=== PATIENT | male | born 1940 | race Caucasian/White ===

== ENCOUNTER 2024-06-26 09:22 | Inpatient (IN) | payer OTHER, MEDICARE ==
[2024-06-26] VITALS (20 sets, daily range): BP systolic 104–168; BP diastolic 50–85; PULSE 55–95; RESP 14–26; O2SAT 92–100
[~2024-06-26] VITALS: Ht 172.7 cm; Wt 113.0 kg
[~2024-06-26 09:22] MED LIST: APIX5TAB3 PO; CHOL100046 PO; CLOP75TA34 PO; FLO0.4C PO; FURO-150 PO; MULT-785 PO; POTA10CA95 PO; TRAZ-251 PO; sodium chloride 0.9% 10ml vial - diluent IJ ONE
[2024-06-26 09:43] LABS: BASOPHILS % (AUTO) 0.4 % (0-1); EOSINOPHILS % (AUTO) 1.3 % (0-6); HEMATOCRIT 34.5 % (42.0-52.0); HEMOGLOBIN 11.4 g/dl (14.0-17.9); LYMPHOCYTES # (AUTO) 1.1 X10'3 (1.1-4.8); MEAN CORPUSCULAR HGB CONC 33.1 g/dL (33.0-36.5); MEAN CORPUSCULAR VOLUME 96.8 FL (78-98); MEAN PLATELET VOLUME 7.6 FL (7.4-10.4); MONOCYTES # (AUTO) 0.4 X10'3 (0-0.9); NEUTROPHILS # (AUTO) 2.2 X10'3 (1.8-7.7); NEUTROPHILS % (AUTO) 58.3 % (42-75); PLATELET COUNT 149 X10'3 (140-440); RED BLOOD COUNT 3.57 X10'6 (4.70-6.10); RED CELL DISTRIBUTION WIDTH 14.1 % (11.5-14.5); WHITE BLOOD COUNT 3.7 X10'3 (4.5-11.0)
[2024-06-26 09:56] LABS: ALANINE AMINOTRANSFERASE 28 U/L (12-78); ALBUMIN 3.2 G/DL (3.4-5.0); ALBUMIN/GLOBULIN RATIO 0.9 (1.1-1.5); ALKALINE PHOSPHATASE 75 IU/L (46-116); ANION GAP 8 (8-16); ASPARTATE AMINO TRANSFERASE 23 U/L (10-37); BILIRUBIN,TOTAL 0.6 MG/DL (0.1-1.0); BLOOD UREA NITROGEN 25 MG/DL (7-18); BUN/CREATININE RATIO 25.8 (10.0-20.0); CALCIUM 8.5 MG/DL (8.5-10.1); CHLORIDE 100 MMOL/L (99-107); CREATININE 0.97 MG/DL (0.60-1.10); GLUCOSE 115 MG/DL (70-104); POTASSIUM 3.8 MMOL/L (3.5-5.1); SODIUM 136 MMOL/L (135-145); TOTAL CARBON DIOXIDE 28.3 MMOL/L (24-32); TOTAL PROTEIN 6.7 G/DL (6.4-8.2); eCRCL 55 ML/MIN; eGFR 74 ML/MIN
[2024-06-26] MEDS: nitroGLYCERIN 0.4mg/hour patch TD ONE (09:59)
[2024-06-26] MEDS: ondansetron/PF 4mg/2ml inj IV ONE (10:00)
[2024-06-26] MEDS: furosemide 10 MG/1 ML 10ml inj IV ONE (10:00)
[2024-06-26] MEDS: morphine 4 MG/ML inj SYRINge IV ONE (10:01)
[2024-06-26 10:04] LABS: PRO BRAIN NATRIURETIC PEPTIDE 400 PG/ML (0-450)
[2024-06-26] MEDS ORDERED: verapamil 2.5 mg/ml inj IV ONE (10:06)
[2024-06-26] MEDS ORDERED: heparin 1,000unit/ml 10ml vial 10 ML ONE ×2 (10:07→11:30)
[2024-06-26] MEDS ORDERED: iohexol 350MG/ML 100ml bottle IV ONE ×3 (10:07→11:14)
[2024-06-26] MEDS ORDERED: fentaNYL/PF 50MCG/1 ML 2ML syringe ONE (10:07)
[2024-06-26] MEDS ORDERED: iohexol 350 MG/ML 50ML vial IV ONE (10:07)
[2024-06-26] MEDS ORDERED: LIDOcaine 1% 30ml preserv. free vial ONE (10:07)
[2024-06-26] MEDS ORDERED: midazolam 1 mg/ML 2ml injection ONE ×2 (10:07→12:03)
[2024-06-26] MEDS ORDERED: nitroGLYCERIN 500mcg/5mL D5W 5 ML IV ONE (10:08)
[2024-06-26] MEDS: propofol 1000mg/100ml bottle 100 ML IV ONE (10:14)
[2024-06-26] MEDS ORDERED: propofol 1000mg/100ml bottle 100 ML IV PRN (10:15)
[2024-06-26 10:17] LABS: APTT 29 SECONDS (22-32); PROTHROMBIN TIME 10.7 SECONDS (9.0-12.0)
[2024-06-26] MEDS: propofol 1000mg/100ml bottle 100 ML IV SCH ×2 (10:18→12:40)
[2024-06-26] MEDS ORDERED: ticagrelor 90mg tablet ONE (11:25)
[2024-06-26] MEDS ORDERED: aspirin 81mg tab.chew ONE (11:41)
[2024-06-26] MEDS: FENTANYL-0.9 % NACL/PF 100 ML IV SCH (12:25)
[2024-06-26] MEDS ORDERED: magnesium hydroxide 30ml (MOM) UD suspension PO PRN (12:45)
[2024-06-26] MEDS ORDERED: acetaminophen 325mg tablet PO PRN ×2 (12:45)
[2024-06-26 15:14] LABS: ABG BASE EXCESS 3.7 mmol/L (-2.0-3.0); ABG HCO3 25.2 mmol/L (21.0-28.0); ABG OXYGEN SATURATION 99.1 % (94.0-98.0); ABG PCO2 (T) 28.6 mmHg (35.0-48.0); ABG PH (T) 7.562 (7.350-7.450); ABG PO2 (T) 194.1 mmHg (83.0-108.0); ALLEN'S TEST POSITIVE; FCOHb 0.3 % (0.5-1.5); FHHb 0.9 % (0.0-5.0); FMetHb 0.1 % (0.0-1.5); FO2Hb 98.7 % (94.0-98.0); MODE VENT - AC; PATIENT TEMPERATURE 36.7; PEEP 5 cm H2O; RESPIRATORY RATE 16 b/min; TIDAL VOLUME 550 mL; TOTAL HEMOGLOBIN 12.7 G/dl (13.5-17.5)
[2024-06-26] MEDS ORDERED: AMLO2.5T2 PO (17:16)
[2024-06-26] MEDS ORDERED: DONE10TA19 PO (17:16)
[2024-06-26] MEDS ORDERED: GABA300C PO (17:17)
[2024-06-26] MEDS ORDERED: HYDR25TA90 PO (17:18)
[2024-06-26] MEDS ORDERED: ROSU40TA71 PO (17:20)
[2024-06-26] MEDS ORDERED: LOSA-415 PO (17:22)
[2024-06-26] MEDS ORDERED: HYDR-3973 PO (17:22)
[2024-06-26] MEDS ORDERED: METO-467 PO ×2 (17:26)
[2024-06-26] MEDS: pantoprazole 40MG/NS 100ML BAG 100 ML IV SCH (17:46)
[2024-06-26 18:13] LABS: CHOL/HDL RATIO 1.7 (0.00-4.99); CHOLESTEROL 151 MG/DL (0-200); HDL CHOLESTEROL 88 MG/DL (35-60); LDL CHOLESTEROL 50 MG/DL (50-100); TRIGLYCERIDES 127 MG/DL (20-135)
[2024-06-26] MEDS: docusate sod 100mg capsule PO SCH (20:00)
[2024-06-27] VITALS (32 sets, daily range): BP systolic 89–156; BP diastolic 40–66; PULSE 55–98; RESP 14–28; TEMP 97.5; O2SAT 91–98
[2024-06-27 03:09] LABS: ABG BASE EXCESS 8.5 mmol/L (-2.0-3.0); ABG HCO3 32.7 mmol/L (21.0-28.0); ABG OXYGEN SATURATION 93.3 % (94.0-98.0); ABG PCO2 (T) 44.5 mmHg (35.0-48.0); ABG PH (T) 7.486 (7.350-7.450); ALLEN'S TEST POSITIVE; FCOHb 0.3 % (0.5-1.5); FHHb 6.7 % (0.0-5.0); FMetHb 0.3 % (0.0-1.5); FO2Hb 92.7 % (94.0-98.0); MODE CMV PRVC IT 0.9; PATIENT TEMPERATURE 37.4; PEEP 5 cm H2O; RESPIRATORY RATE 14 b/min; TIDAL VOLUME 450 mL; TOTAL HEMOGLOBIN 12.1 G/dl (13.5-17.5)
[2024-06-27 04:23] LABS: BASOPHILS % (AUTO) 0.3 % (0-1); EOSINOPHILS # (AUTO) 0.1 X10'3 (0-0.9); LYMPHOCYTES % (AUTO) 17.9 % (21-51); MEAN CORPUSCULAR HEMOGLOBIN 32.1 PG (27.0-31.0); MEAN CORPUSCULAR HGB CONC 33.2 g/dL (33.0-36.5); MEAN CORPUSCULAR VOLUME 96.5 FL (78-98); MEAN PLATELET VOLUME 7.7 FL (7.4-10.4); MONOCYTES # (AUTO) 0.7 X10'3 (0-0.9); MONOCYTES % (AUTO) 11.2 % (2-12); NEUTROPHILS % (AUTO) 69.6 % (42-75); PLATELET COUNT 155 X10'3 (140-440); RED BLOOD COUNT 3.42 X10'6 (4.70-6.10); RED CELL DISTRIBUTION WIDTH 14.1 % (11.5-14.5); WHITE BLOOD COUNT 5.8 X10'3 (4.5-11.0)
[2024-06-27 04:30] LABS: ALANINE AMINOTRANSFERASE 22 U/L (12-78); ALBUMIN 2.8 G/DL (3.4-5.0); ALBUMIN/GLOBULIN RATIO 0.9 (1.1-1.5); ALKALINE PHOSPHATASE 63 IU/L (46-116); ANION GAP 3 (8-16); ASPARTATE AMINO TRANSFERASE 19 U/L (10-37); BILIRUBIN,TOTAL 0.6 MG/DL (0.1-1.0); BLOOD UREA NITROGEN 18 MG/DL (7-18); BUN/CREATININE RATIO 18.6 (10.0-20.0); CALCIUM 8.4 MG/DL (8.5-10.1); CHLORIDE 101 MMOL/L (99-107); CHOL/HDL RATIO 1.9 (0.00-4.99); CHOLESTEROL 132 MG/DL (0-200); CREATININE 0.97 MG/DL (0.60-1.10); GLUCOSE 97 MG/DL (70-104); HDL CHOLESTEROL 70 MG/DL (35-60); LDL CHOLESTEROL 43 MG/DL (50-100); MAGNESIUM 1.8 MG/DL (1.5-2.4); PHOSPHORUS 4.5 MG/DL (2.3-4.5); POTASSIUM 3.4 MMOL/L (3.5-5.1); SODIUM 139 MMOL/L (135-145); TOTAL CARBON DIOXIDE 35.1 MMOL/L (24-32); TRIGLYCERIDES 132 MG/DL (20-135); eCRCL 55 ML/MIN; eGFR 74 ML/MIN
[2024-06-27] MEDS: aspirin 81mg, enteric-coated 1 TAB TABLET.DR PO SCH (08:19)
[2024-06-27] MEDS: ticagrelor 90mg tablet PO SCH (08:19)
[2024-06-27] MEDS ORDERED: magnesium sulf-water 4G/100mL 100 ML IV PRN ×2 (12:05→13:30)
[2024-06-27] MEDS ORDERED: magnesium sulf-water 2g/50mL 50 ML IV PRN (12:05)
[2024-06-27] MEDS ORDERED: potassium Cl 40MEQ/1/2NS 520ml 520 ML IV PRN ×2 (12:05→13:30)
[2024-06-27] MEDS ORDERED: potassium Cl 20 mEq SR tablet PO PRN ×3 (12:05→13:30)
[2024-06-27] MEDS: HYDROcodone/acetaminophen 10/325mg tab PO PRN (12:22)
[2024-06-27] MEDS ORDERED: magnesium Cl slow-release 64mg tablet PO PRN (13:30)
[2024-06-27] MEDS: LIDOcaine 5% patch TP ONE (16:50)
[2024-06-27] MEDS: gabapentin 300mg capsule PO SCH (20:34)
[2024-06-27] MEDS: hydrALAZINE 25 MG tablet PO SCH (20:36)
[2024-06-27] MEDS: potassium Cl 20 mEq SR tablet PO PRN (20:37)
[2024-06-27] MEDS: tamsulosin 0.4mg capsule PO SCH (20:37)
[2024-06-27] MEDS: traZODone 50mg tablet PO SCH (20:39)
[2024-06-27] MEDS: donepezil 5mg tablet PO SCH (20:39)
[2024-06-27] MEDS: metoprolol tartrate 25mg tablet PO SCH (20:40)
[2024-06-27] MEDS: K and/or MAG REPLACEMENT MC SCH (20:44)
[2024-06-28] VITALS (10 sets, daily range): BP systolic 115–154; BP diastolic 46–70; PULSE 74–82; RESP 18–23; TEMP 98.2–98.9; O2SAT 88–96
[2024-06-28 07:18] LABS: BASOPHILS % (AUTO) 0.2 % (0-1); EOSINOPHILS % (AUTO) 0.1 % (0-6); HEMATOCRIT 34.6 % (42.0-52.0); HEMOGLOBIN 11.5 g/dl (14.0-17.9); LYMPHOCYTES # (AUTO) 0.8 X10'3 (1.1-4.8); LYMPHOCYTES % (AUTO) 11.1 % (21-51); MEAN CORPUSCULAR HEMOGLOBIN 32.3 PG (27.0-31.0); MEAN CORPUSCULAR HGB CONC 33.2 g/dL (33.0-36.5); MEAN CORPUSCULAR VOLUME 97.2 FL (78-98); MONOCYTES # (AUTO) 0.9 X10'3 (0-0.9); MONOCYTES % (AUTO) 12.4 % (2-12); NEUTROPHILS # (AUTO) 5.7 X10'3 (1.8-7.7); NEUTROPHILS % (AUTO) 76.2 % (42-75); PLATELET COUNT 156 X10'3 (140-440); RED BLOOD COUNT 3.56 X10'6 (4.70-6.10); RED CELL DISTRIBUTION WIDTH 13.7 % (11.5-14.5); WHITE BLOOD COUNT 7.5 X10'3 (4.5-11.0)
[2024-06-28] MEDS: metoprolol tartrate 50mg tablet PO SCH (07:36)
[2024-06-28] MEDS: losartan 50mg tablet PO SCH (07:37)
[2024-06-28] MEDS: amLODIPine 5mg tablet PO SCH (07:38)
[2024-06-28] MEDS: furosemide 20MG tablet PO SCH (07:39)
[2024-06-28] MEDS: ROSUVASTATIN CALCIUM 5 MG TABLET PO SCH (07:40)
[2024-06-28 07:59] LABS: ALANINE AMINOTRANSFERASE 18 U/L (12-78); ALBUMIN 2.7 G/DL (3.4-5.0); ALBUMIN/GLOBULIN RATIO 0.7 (1.1-1.5); ALKALINE PHOSPHATASE 65 IU/L (46-116); ANION GAP 4 (8-16); ASPARTATE AMINO TRANSFERASE 18 U/L (10-37); BILIRUBIN,TOTAL 1.1 MG/DL (0.1-1.0); BLOOD UREA NITROGEN 12 MG/DL (7-18); BUN/CREATININE RATIO 12.9 (10.0-20.0); CALCIUM 8.5 MG/DL (8.5-10.1); CHLORIDE 100 MMOL/L (99-107); CHOL/HDL RATIO 1.7 (0.00-4.99); CHOLESTEROL 138 MG/DL (0-200); CREATININE 0.93 MG/DL (0.60-1.10); GLUCOSE 99 MG/DL (70-104); HDL CHOLESTEROL 81 MG/DL (35-60); LDL CHOLESTEROL 39 MG/DL (50-100); POTASSIUM 3.8 MMOL/L (3.5-5.1); SODIUM 136 MMOL/L (135-145); TOTAL CARBON DIOXIDE 31.7 MMOL/L (24-32); TOTAL PROTEIN 6.6 G/DL (6.4-8.2); TRIGLYCERIDES 97 MG/DL (20-135); eCRCL 57 ML/MIN; eGFR 77 ML/MIN
[2024-06-28] MEDS: magnesium Cl slow-release 64mg tablet PO PRN (09:13)
[2024-06-28 15:44] LABS: PRO BRAIN NATRIURETIC PEPTIDE 1000 PG/ML (0-450)
[2024-06-28] MEDS ORDERED: HYDROcodone/acetaminophen 10/325mg tab PO PRN (16:50)
[2024-06-28] MEDS: furosemide 40mg/4ml inj IV ONE (17:16)
[2024-06-28] MEDS: apixaban 5mg tablet PO SCH (21:02)
[2024-06-29] VITALS (16 sets, daily range): BP systolic 105–138; BP diastolic 36–73; PULSE 64–78; RESP 14–22; TEMP 98–99; O2SAT 92–97
[2024-06-29 06:39] LABS: BASOPHILS % (AUTO) 0.3 % (0-1); EOSINOPHILS # (AUTO) 0.1 X10'3 (0-0.9); EOSINOPHILS % (AUTO) 0.8 % (0-6); HEMATOCRIT 33.5 % (42.0-52.0); LYMPHOCYTES % (AUTO) 13.6 % (21-51); MEAN CORPUSCULAR HEMOGLOBIN 32.2 PG (27.0-31.0); MEAN CORPUSCULAR VOLUME 97.7 FL (78-98); MEAN PLATELET VOLUME 7.8 FL (7.4-10.4); MONOCYTES # (AUTO) 0.9 X10'3 (0-0.9); MONOCYTES % (AUTO) 12.1 % (2-12); NEUTROPHILS # (AUTO) 5.2 X10'3 (1.8-7.7); NEUTROPHILS % (AUTO) 73.2 % (42-75); PLATELET COUNT 141 X10'3 (140-440); RED BLOOD COUNT 3.42 X10'6 (4.70-6.10); WHITE BLOOD COUNT 7.2 X10'3 (4.5-11.0)
[2024-06-29 06:54] LABS: ALANINE AMINOTRANSFERASE 20 U/L (12-78); ALBUMIN 2.5 G/DL (3.4-5.0); ALBUMIN/GLOBULIN RATIO 0.6 (1.1-1.5); ALKALINE PHOSPHATASE 59 IU/L (46-116); ANION GAP 3 (8-16); ASPARTATE AMINO TRANSFERASE 16 U/L (10-37); BILIRUBIN,TOTAL 0.8 MG/DL (0.1-1.0); BLOOD UREA NITROGEN 32 MG/DL (7-18); BUN/CREATININE RATIO 18.4 (10.0-20.0); CALCIUM 8.6 MG/DL (8.5-10.1); CHLORIDE 98 MMOL/L (99-107); CREATININE 1.74 MG/DL (0.60-1.10); GLUCOSE 99 MG/DL (70-104); PHOSPHORUS 4.6 MG/DL (2.3-4.5); POTASSIUM 4.9 MMOL/L (3.5-5.1); SODIUM 135 MMOL/L (135-145); TOTAL CARBON DIOXIDE 34.1 MMOL/L (24-32); TOTAL PROTEIN 6.6 G/DL (6.4-8.2); eCRCL 31 ML/MIN; eGFR 38 ML/MIN
[2024-06-29] MEDS: furosemide 20 MG/2 ML vial IV SCH (08:29)
[2024-06-29] MEDS: pantoprazole 40 MG vial IV SCH (08:29)
[2024-06-29] MEDS: normal saline 1000ml 1,000 ML IV SCH (09:26)
[2024-06-29] MEDS: ipratropium/albuterol 3ml nebule NEB SCH (10:20)
[2024-06-29] MEDS: methylPREDNISolone sod succ 125mg/2ml vial IV ONE (19:32)
[2024-06-29] MEDS: guaiFENesin ER 600mg tablet PO SCH (19:35)
[2024-06-29] MEDS: LIDOcaine 5% patch TP ONE (22:38)
[2024-06-29] MEDS: nystatin 15 GM powder TP SCH (22:39)
[2024-06-29] MEDS: morphine 2 MG/ML inj. syringe IV PRN (22:40)
[2024-06-30] VITALS (15 sets, daily range): BP systolic 124–169; BP diastolic 47–61; PULSE 65–84; RESP 10–22; TEMP 97.3–98.8; O2SAT 90–96
[2024-06-30 06:05] LABS: BASOPHILS % (AUTO) 0 % (0-1); EOSINOPHILS % (AUTO) 0 % (0-6); HEMATOCRIT 31.7 % (42.0-52.0); HEMOGLOBIN 10.6 g/dl (14.0-17.9); LYMPHOCYTES # (AUTO) 0.1 X10'3 (1.1-4.8); LYMPHOCYTES % (AUTO) 2.5 % (21-51); MEAN CORPUSCULAR HEMOGLOBIN 32.3 PG (27.0-31.0); MEAN CORPUSCULAR HGB CONC 33.4 g/dL (33.0-36.5); MEAN CORPUSCULAR VOLUME 96.7 FL (78-98); MONOCYTES # (AUTO) 0.1 X10'3 (0-0.9); MONOCYTES % (AUTO) 2.5 % (2-12); NEUTROPHILS # (AUTO) 5.7 X10'3 (1.8-7.7); PLATELET COUNT 152 X10'3 (140-440); RED BLOOD COUNT 3.28 X10'6 (4.70-6.10); RED CELL DISTRIBUTION WIDTH 13.6 % (11.5-14.5)
[2024-06-30 07:09] LABS: ALANINE AMINOTRANSFERASE 25 U/L (12-78); ALBUMIN 2.3 G/DL (3.4-5.0); ALBUMIN/GLOBULIN RATIO 0.5 (1.1-1.5); ALKALINE PHOSPHATASE 69 IU/L (46-116); ANION GAP 6 (8-16); ASPARTATE AMINO TRANSFERASE 36 U/L (10-37); BILIRUBIN,TOTAL 0.5 MG/DL (0.1-1.0); BLOOD UREA NITROGEN 40 MG/DL (7-18); CALCIUM 8.6 MG/DL (8.5-10.1); CHLORIDE 96 MMOL/L (99-107); CREATININE 1.38 MG/DL (0.60-1.10); GLUCOSE 189 MG/DL (70-104); PHOSPHORUS 3.8 MG/DL (2.3-4.5); POTASSIUM 4.1 MMOL/L (3.5-5.1); SODIUM 131 MMOL/L (135-145); TOTAL CARBON DIOXIDE 28.8 MMOL/L (24-32); TOTAL PROTEIN 6.6 G/DL (6.4-8.2); eCRCL 39 ML/MIN; eGFR 49 ML/MIN
[2024-06-30] MEDS: predniSONE 20 mg tablet PO SCH (08:51)
[2024-06-30] MEDS: gabapentin 300mg capsule PO SCH (20:38)
[2024-07-01] VITALS (8 sets, daily range): BP systolic 135–148; BP diastolic 44–57; PULSE 65–73; RESP 14–22; TEMP 97.1–100; O2SAT 93–97
[2024-07-01 05:56] LABS: BASOPHILS % (AUTO) 0.1 % (0-1); EOSINOPHILS % (AUTO) 0 % (0-6); HEMATOCRIT 30.3 % (42.0-52.0); LYMPHOCYTES # (AUTO) 0.5 X10'3 (1.1-4.8); LYMPHOCYTES % (AUTO) 6.6 % (21-51); MEAN CORPUSCULAR HEMOGLOBIN 31.6 PG (27.0-31.0); MEAN CORPUSCULAR VOLUME 95.9 FL (78-98); MEAN PLATELET VOLUME 7.6 FL (7.4-10.4); MONOCYTES # (AUTO) 0.6 X10'3 (0-0.9); MONOCYTES % (AUTO) 8.2 % (2-12); NEUTROPHILS # (AUTO) 6.1 X10'3 (1.8-7.7); NEUTROPHILS % (AUTO) 85.1 % (42-75); PLATELET COUNT 181 X10'3 (140-440); RED BLOOD COUNT 3.16 X10'6 (4.70-6.10); RED CELL DISTRIBUTION WIDTH 13.8 % (11.5-14.5); WHITE BLOOD COUNT 7.1 X10'3 (4.5-11.0)
[2024-07-01 06:48] LABS: ALANINE AMINOTRANSFERASE 47 U/L (12-78); ALBUMIN 2.3 G/DL (3.4-5.0); ALBUMIN/GLOBULIN RATIO 0.6 (1.1-1.5); ALKALINE PHOSPHATASE 63 IU/L (46-116); ANION GAP 4 (8-16); ASPARTATE AMINO TRANSFERASE 60 U/L (10-37); BILIRUBIN,TOTAL 0.3 MG/DL (0.1-1.0); BLOOD UREA NITROGEN 30 MG/DL (7-18); BUN/CREATININE RATIO 30.6 (10.0-20.0); CALCIUM 8.6 MG/DL (8.5-10.1); CHLORIDE 102 MMOL/L (99-107); CREATININE 0.98 MG/DL (0.60-1.10); GLUCOSE 120 MG/DL (70-104); MAGNESIUM 2.3 MG/DL (1.5-2.4); PHOSPHORUS 3.1 MG/DL (2.3-4.5); POTASSIUM 4.2 MMOL/L (3.5-5.1); SODIUM 135 MMOL/L (135-145); TOTAL CARBON DIOXIDE 28.9 MMOL/L (24-32); TOTAL PROTEIN 6.4 G/DL (6.4-8.2); eCRCL 54 ML/MIN; eGFR 73 ML/MIN
[2024-07-01] MEDS: clopidogrel 75mg tablet PO SCH (08:14)
[2024-07-01] MEDS ORDERED: ASPI-1071 PO (12:23)
[2024-07-01] MEDS ORDERED: FURO-150 PO (12:35)
[2024-07-01] MEDS ORDERED: PRED10TA23 PO (12:38)
[2024-07-01] MEDS ORDERED: IPRA3AMP9 NEB (12:38)
[2024-07-01] MEDS ORDERED: ALBU8HFA INH (21:50)
[2024-07-01] MEDS ORDERED: ASPI81TA52 PO (21:50)
[2024-07-02] MEDS ORDERED: pantoprazole 40mg Tablet.DR PO SCH (07:30)
[2024-07-02] MEDS ORDERED: ASPI81TA52 PO (18:20)
== END 2024-07-01 16:25 | disposition home health service (06) | DRG 321 ==
LOC: ER 09:23 → CICU 2S 11:45 → PCU 3S 06-27 19:50
PROVIDERS: ADMIT Internal Medicine Cardiovascular Disease; ATTEND Internal Medicine Cardiovascular Disease
PROC: 5A1935Z Respiratory Ventilation, Less than 24 Consecutive Hours (ICD-10-PCS; 2024-06-26)
PROC: 0BH17EZ Insertion of Endotracheal Airway into Trachea, Via Natural or Artificial Opening (ICD-10-PCS; 2024-06-26)
PROC: 5A09357 Assistance with Respiratory Ventilation, Less than 24 Consecutive Hours, Continuous Positive Airway Pressure (ICD-10-PCS; 2024-06-27)
PROC: 5A0935A Assistance with Respiratory Ventilation, Less than 24 Consecutive Hours, High Flow/Velocity Cannula (ICD-10-PCS; 2024-06-27)
PROC: 027034Z Dilation of Coronary Artery, One Artery with Drug-eluting Intraluminal Device, Percutaneous Approach (ICD-10-PCS; principal; 2024-06-30)
PROC: B2111ZZ Fluoroscopy of Multiple Coronary Arteries using Low Osmolar Contrast (ICD-10-PCS; 2024-06-30)
PROC: B31J1ZZ Fluoroscopy of Left Upper Extremity Arteries using Low Osmolar Contrast (ICD-10-PCS; 2024-06-30)
PROC: 4A023N7 Measurement of Cardiac Sampling and Pressure, Left Heart, Percutaneous Approach (ICD-10-PCS; 2024-06-30)
PROC: B34JZZZ Ultrasonography of Left Upper Extremity Arteries (ICD-10-PCS; 2024-06-30)
PROC: B2151ZZ Fluoroscopy of Left Heart using Low Osmolar Contrast (ICD-10-PCS; 2024-06-30)
DX: I21.3 ST elevation (STEMI) myocardial infarction of unspecified site (principal); J96.01 Acute respiratory failure with hypoxia; I48.20 Chronic atrial fibrillation, unspecified; I50.1 Left ventricular failure, unspecified; I13.0 Hypertensive heart and chronic kidney disease with heart failure and stage 1 through stage 4 chronic kidney disease, or unspecified chronic kidney disease; M86.671 Other chronic osteomyelitis, right ankle and foot; I25.10 Atherosclerotic heart disease of native coronary artery without angina pectoris; E66.01 Morbid (severe) obesity due to excess calories; J44.9 Chronic obstructive pulmonary disease, unspecified; N18.9 Chronic kidney disease, unspecified; G89.29 Other chronic pain; Z87.11 Personal history of peptic ulcer disease; Z89.511 Acquired absence of right leg below knee; Z91.199 Patient's noncompliance with other medical treatment and regimen due to unspecified reason; Z95.1 Presence of aortocoronary bypass graft; Z95.5 Presence of coronary angioplasty implant and graft; Z88.1 Allergy status to other antibiotic agents; Z88.8 Allergy status to other drugs, medicaments and biological substances; Z68.37 Body mass index [BMI] 37.0-37.9, adult
CPT/HCPCS: 93458; 99285; C9600; C9606; 36415; 36600; 71045; 80053; 80061; 82803; 82948; 83735; 83880; 84100; 84145; 84484; 85018; 85025; 85347; 85610; 85730; 87081; 93005; 94002; 94003; 94640; 94760; 94799; 97116; 97162; 97530; 99152; 99153; A4314; A4338; A4615; A6223; A6258; A6449; C1725; C1751; C1758; C1769; C1874; C1894; G0378; J1644; J1940; J2250; J2270; J2405; J2470; J2704; J2919; J3010; J3490; J7030; J7040; J7512; Q9967